=== PATIENT | male | born 1955 | race Caucasian/White ===

== ENCOUNTER 2018-06-11 16:30 | Emergency (ER) | payer MEDICARE, OTHER ==
[~2018-06-11] VITALS: Ht 180.3 cm; Wt 88.5 kg
[2018-06-11] MEDS ORDERED: GABA400 PO (17:07)
[2018-06-11] MEDS ORDERED: ZESTRIL40 MG PO (17:07)
[2018-06-11] MEDS ORDERED: Ultram50 MG PO (17:10)
== END 2018-06-11 17:18 | disposition home or self-care (01) ==
LOC: ER 16:30
DX: S89.91XA Unspecified injury of right lower leg, initial encounter (principal); X58.XXXA Exposure to other specified factors, initial encounter; Z88.5 Allergy status to narcotic agent; Z79.899 Other long term (current) drug therapy; I10 Essential (primary) hypertension; F17.210 Nicotine dependence, cigarettes, uncomplicated
CPT/HCPCS: 96372; 99282; J1885